=== PATIENT | male | born 1960 | race Caucasian/White ===

== ENCOUNTER 2018-10-11 07:03 | Day surgery (SDC) | payer BC ==
[2018-10-11] MEDS ORDERED: SOD CHLORIDE 0.9% 1,000 ML IV (08:30)
[2018-10-11] MEDS ORDERED: LIDOCAINE 2% (SDV) 5 ML INJ (09:36)
[2018-10-11] MEDS ORDERED: PROPOFOL 20 ML (09:36)
[2018-10-11] MEDS ORDERED: FENTAnyl 50 MCG/ML VIAL ×2 (09:36→10:40)
[2018-10-11] MEDS ORDERED: MIDAZOLAM 1 MG/ML 2 ML INJ (09:36)
[2018-10-11] MEDS ORDERED: CEFAZOLIN 1 GM INJ (09:37)
[2018-10-11] MEDS ORDERED: SUCCINYLCHOLINE CHLORIDE 100 MG/5 ML SYG IV (09:39)
[2018-10-11] MEDS ORDERED: POVIDONE IODINE 10% 28.4 GM OINT (09:47)
[2018-10-11] MEDS ORDERED: LIDOCAINE 1% (MPF) 30 ML INJ (09:47)
[2018-10-11] MEDS ORDERED: DESFLURANE 15 MIN (10:00)
[2018-10-11] MEDS ORDERED: METOCLOPRAMIDE 10 MG INJ (10:13)
[2018-10-11] MEDS ORDERED: ONDANSETRON 4 MG INJ (10:13)
[2018-10-11] MEDS ORDERED: DEXAMETHASONE 4 MG/ML 5 ML INJ (10:13)
[2018-10-11] MEDS ORDERED: FAMOTIDINE 20 MG INJ (10:13)
[2018-10-11] MEDS ORDERED: PHENYLephrine (100 MCG/ML) 10ML SYG (10:27)
[2018-10-11] MEDS ORDERED: HYDROmorphONE 1 MG/5 ML IV SYRINGE IV ×3 (10:30)
[2018-10-11] MEDS ORDERED: hydrALAzine 20 MG INJ IV (10:30)
[2018-10-11] MEDS ORDERED: ONDANSETRON 4 MG INJ IV (10:30)
[2018-10-11] MEDS ORDERED: OXYCODONE/ACETAMINOPHEN (5/325) TAB PO ×2 (10:30)
[2018-10-11] MEDS ORDERED: LABETALOL HCL 20MG INJ IV (10:30)
[2018-10-11] MEDS ORDERED: MEPERIDINE 25 MG INJ IV (10:30)
[2018-10-11] MEDS ORDERED: KETOROLAC 30 MG INJ (11:33)
[2018-10-11] MEDS: BUPIVACAINE 0.5% (SDV) 30 ML INJ (11:38)
== END 2018-10-11 13:20 | disposition home or self-care (01) ==
LOC: SDS 07:03
DX: M20.11 Hallux valgus (acquired), right foot (principal); M21.611 Bunion of right foot; M20.41 Other hammer toe(s) (acquired), right foot; I10 Essential (primary) hypertension; E11.9 Type 2 diabetes mellitus without complications; E03.9 Hypothyroidism, unspecified
CPT/HCPCS: 28285; 82962; 88304; 88311